=== PATIENT | female | born 1950 | race Caucasian/White ===

== ENCOUNTER 2024-04-30 08:00 | Outpatient (CLI) | payer MEDICARE, OTHER ==
--- NOTE | 2024-05-01 00:54 | XRAY Report ---
PROCEDURE: Chest 2V INDICATIONS: COUGH/COVID+ TECHNIQUE: 2 views of the chest were acquired. COMPARISON: Same day CT FINDINGS: Surgical changes and devices: Sternotomy. Lungs and pleura: No pleural effusions or pneumothorax. 3.3 cm left upper lobe mass. Mediastinum: Mediastinal contours appear normal. Heart size is normal. Bones and chest wall: No suspicious bony lesions. Overlying soft tissues appear unremarkable. IMPRESSION: No acute cardiopulmonary process. 3.3 cm left upper lobe mass. Please see associated chest CT for recommendations. Reviewed by: Veto Carrero MD on 05/01/2024 12:53 AM PDT Approved by: Veto Carrero MD on 05/01/2024 12:53 AM PDT Station ID: [id number]
== END 2024-04-30 23:59 | disposition home or self-care (01) ==
LOC: DI.S 08:00
PROVIDERS: ATTEND Emergency Medicine
DX: U07.1 COVID-19 (principal); R91.8 Other nonspecific abnormal finding of lung field

== ENCOUNTER 2024-04-30 20:33 | Emergency (ER) | payer MEDICARE, OTHER ==
[2024-04-30 20:44] VITALS: O2SAT 98
--- NOTE | 2024-04-30 21:19 | ED Physician Documentation ---
History of Present Illness - Stated complaint Stated Complaint: SOA - Chief complaint Chief Complaint: Resp - History obtained from History obtained from: Patient - History of Present Illness Timing: Prior to arrival - Additonal information Additional information: Patient is a 73-year-old female presenting to the emergency department with shortness of breath. Patient symptoms have been going on after a recent diagnosis of COVID 5 days ago. Patient went to walk-in clinic and had chest x- ray that showed no acute findings however given persistent shortness of breath patient instructed to come to the emergency department. Patient denies any wheezing. She has a history of smoking she quit last year. She has a history of coronary artery disease but no history of DVTs or PEs. She denies any chest pain. 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 Patient denies any dizziness no lightheadedness. She denies any leg swelling. Patient is on her last day of Paxlovid and noted initially she was feeling better but her symptoms seem to worsen today. She denies any fevers or chills. PD PAST MEDICAL HISTORY - Past Medical History Past Medical History: Yes Cardiovascular: Hypertension, High cholesterol, Arrhythmia - Allergies Allergies/Adverse Reactions: Allergies Allergy/AdvReac Type Severity Reaction Status Date / Time No Known Drug Allergies Allergy Verified 04/30/24 20:41 - Social History Does the pt smoke?: No Smoking Status: Never smoker PD ED PE NORMAL - Vitals Vital signs reviewed: Yes - General General: Alert and oriented X 3 - HEENT HEENT: Atraumatic - Neck Neck: Supple, no meningeal sign - Cardiac Cardiac: RRR, No murmur, No gallop, No rub, Other (No lower leg swelling) - Respiratory Respiratory: No respiratory distress, Clear bilaterally - Abdomen Abdomen: Normal bowel sounds - Back Back: No CVA TTP - Derm Derm: Normal color, No rash - Extremities Extremities: No deformity Results - Vitals Vitals: Vital Signs - 24 hr 04/30/24 04/30/24 20:38 21:35 Temperature 37 C Heart Rate 90 92 Respiratory 20 20 Rate Blood Pressure 151/64 H O2 Saturation 98 Oxygen O2 Source Room air - EKG (time done) 7891 EKG releavant findings:: EKG personally interpreted by author of this note. Relevant findings are: Rate: Rate (enter#), Benjamin, Tachy, Other Rhythm: NSR [place]: Normal Intervals: Normal [place] QRS: Normal Ischemia: Normal ST segments Compare to prior EKG: Old EKG unavailable Computer interpretation: Agree with computer - Labs Labs: Laboratory Tests 04/30/24 04/30/24 04/30/24 21:40 21:40 21:40 WBC 11.3 H RBC 3.68 L Hgb 9.6 L Hct 30.9 L MCV 84.0 MCH 26.1 L MCHC 31.1 L RDW 13.7 Plt Count 450 MPV 8.7 Neut # (Auto) 9.6 H Lymph # (Auto) 1.2 L [place] # (Auto) 0.4 Eos # (Auto) 0.0 Baso # (Auto) 0.0 Absolute Nucleated RBC 0.00 Nucleated RBC % 0.0 D-Dimer 299.0 H Sodium 137 Potassium 4.2 Chloride 104 Carbon Dioxide 22 Anion Gap 11.0 BUN 23 H Creatinine 1.1 Estimated GFR (MDRD) 49 L Glucose 127 H Calcium 9.5 Total Bilirubin 0.4 AST 21 ALT 16 Alkaline Phosphatase 102 Troponin I High Sens 3.5 Total Protein 7.0 Albumin 4.3 Globulin 2.7 Albumin/Globulin Ratio 1.6 PD Medical Decision Making - ED course Complexity details: reviewed old records ED course: Patient is a 73-year-old female presenting to the emergency department with shortness of breath but no chest pain. Patient recently had COVID-positive test on the and had symptoms since last Friday. She has past medical history of hypertension atrial fibrillation and coronary artery disease. She was started on Paxlovid and just has 1 more dose to complete. Patient notes persistent symptoms when she is walking she feels she loses her breath. She was on an inhaler with no relief. Vital stable on arrival patient saturating well on room air clear breath sounds on auscultation. Patient chest x-ray at walk-in clinic that was unremarkable. Labs obtained here in emergency department with D-dimer included given recent COVID diagnosis and predisposition to clots in her lungs. Troponin is negative EKG shows no acute findings. There is apparent findings of elevated D-dimer. Patient's GFR is slightly decreased at 49 we will give some fluids but patient will be sent for CT PE for further evaluation. 2106: Patient taken over by Dr. Busch. Departure - Departure Forms: PCP List
[2024-04-30] MEDS: ALBUTEROL 1 PUFF INH STA (21:35)
[2024-04-30 21:46] LABS: BASOPHILS % (AUTO) 0.4 %; EOSINOPHILS % (AUTO) 0.4 %; HCT - HEMATOCRIT 30.9 % (37.0-47.0); HGB - HEMOGLOBIN 9.6 g/dL (12.0-16.0); LYMPHOCYTES # (AUTO) 1.2 10^3/uL (1.5-3.5); LYMPHOCYTES % (AUTO) 10.4 %; MEAN CORPUSCULAR HEMOGLOBIN 26.1 pg (27.0-31.0); MEAN CORPUSCULAR HGB CONC 31.1 g/dL (32.0-36.0); MEAN PLATELET VOLUME 8.7 fL (7.9-10.8); MONOCYTES # (AUTO) 0.4 10^3/uL (0.0-1.0); MONOCYTES % (AUTO) 3.4 %; NEUTROPHILS # (AUTO) 9.6 10^3/uL (1.5-6.6); NEUTROPHILS % (AUTO) 84.7 %; PLT - PLATELET COUNT 450 10^3/uL (130-450); RED BLOOD COUNT 3.68 10^6/uL (4.20-5.40); RED CELL DISTRIBUTION WIDTH 13.7 % (12.0-15.0); WHITE BLOOD COUNT 11.3 x10^3/uL (4.8-10.8)
[2024-04-30 22:06] LABS: ALBUMIN 4.3 g/dL (3.2-5.5); ALBUMIN/GLOBULIN RATIO 1.6 (1.0-2.2); BILIRUBIN,TOTAL 0.4 mg/dL (0.2-1.0); CALCIUM 9.5 mg/dL (8.5-10.3); CREATININE 1.1 mg/dL (0.6-1.3); POTASSIUM 4.2 mmol/L (3.5-4.5)
[2024-04-30 22:07] LABS: TROPONIN I HIGH SENSITIVITY 3.5 ng/L (2.3-14.8)
[2024-04-30] MEDS ORDERED: iohexoL-300 100 ML VIAL ONE (22:58)
[2024-04-30] MEDS: SODIUM CHLORIDE 0.9% 1,000 ML IV STA (23:20)
--- NOTE | 2024-05-01 00:01 | ED Physician Documentation ---
ED Addendum - Addendum Addendum: 05/01/24 01:24 I received signout/turnover of care of this patient from BLESSING López; please see her note for complete H&P. In brief, this patient was diagnosed recently with COVID in the outpatient setting, prescribed Paxlovid (she has 1 single dose of this left). She presented to the emergency department tonight for shortness of breath that has been worsening over the past few days. Blood tests had all resulted by the time of turnover of care without concerning/diagnostic findings. A CT scan of the chest is pending at the time of turnover. The only abnormality on the CT scan is a 2.7 x 2.5 cm left lower lobe nodule. Otherwise unremarkable CT scan including no evidence of PE nor acute infectious process such as infiltrate/pneumonia. I discussed these results with the patient. She indicates that she is already aware of a left-sided nodule or mass of some sort, and that this is being followed for at least the last couple of years. Nonetheless, I advised her to contact her primary care provider when the office is next open to mention this finding for comparative purposes. Similarly, I advised her of her slightly low hemoglobin level and provided her with the measurements of the nodule and the hemoglobin level (typed into her discharge instructions), again for comparative purposes when she follows up. Return precautions are reviewed.
[2024-05-01] MEDS: iohexoL-300 100 ML VIAL IVP ONE (00:51)
[2024-05-01 00:57] VITALS: BP 140/66
--- NOTE | 2024-05-01 00:57 | CT Report ---
PROCEDURE: Angio Chest INDICATIONS: concern for PE. History of Covid. Short of breath with cough. CONTRAST: 100 ML OMNI 300 TECHNIQUE: After the administration of intravenous contrast, 2 mm axial images were acquired from the pulmonary apices to the posterior costophrenic angles during the arterial phase. In addition, 1 mm lung kernel and 5 mm soft tissue kernel reconstructions were performed. 3-dimensional coronal oblique maximum int ensity projection (MIP) reformats, 8 mm axial MIP, and 5 mm coronal and sagittal MPR reformats were t hen performed through the thorax. For radiation dose reduction, the following was used: automated exp osure control, adjustment of mA and/or kV according to patient size. COMPARISON: Same day chest x-ray. FINDINGS: Image quality: Excellent. Large vessels: No filling defects within the opacified pulmonary arteries, accounting for motion and contrast timing. No evidence of acute aortic syndrome or aortic aneurysm. Lungs and pleura: No consolidation. No pleural effusions. No pneumothorax. Left lower lobe solid nod ule with contact along the posterior chest wall. This measures 2.7 x 2.5 cm. Mild secretions within the right lower lobe airways. Mediastinum: Heart size is normal. No pericardial effusion. No large vessel abnormality. No mediastin al adenopathy by size criteria. Sternotomy and CABG. Small hiatal hernia. Chest wall and lower neck: Thyroid is unremarkable. No axillary or supraclavicular adenopathy by size . Bones: No aggressive osseous abnormality. Upper Abdomen: Unremarkable. IMPRESSION: No pulmonary embolus. No acute cardiopulmonary process. 2.7 x 2.5 cm left lower lobe. Consider PET/CT or tissue sampling to exclude malignancy. Reviewed by: Veto Carrero MD on 05/01/2024 12:56 AM PDT Approved by: Veto Carrero MD on 05/01/2024 12:56 AM PDT Station ID: [id number]
== END 2024-05-01 01:26 | disposition home or self-care (01) ==
LOC: ED 20:33
DX: U07.1 COVID-19 (principal)
CPT/HCPCS: 36415; 71046; 71275; 80053; 84484; 85025; 85379; 93005; 94640; 94664; 99283; 99284; Q9967